=== PATIENT | female | born 1995 | race Caucasian/White ===

== ENCOUNTER 2018-03-03 18:20 | Emergency (ER) | payer OTHER ==
--- NOTE | 2018-03-03 20:03 | ER Document Report ---
HPI - HPI Pain Level: 4 Notes: Patient is a 22-year-old female who presents with chief complaint of left breast pain that started yesterday. Patient denies any fever but reports mild chills yesterday. Patient states that she believes she has either a clogged milk duct or mastitis. Patient is currently breast-feeding her 1-year-old . Past Medical History - General Information source: Patient - Social History Smoking Status: Never Smoker Chew tobacco use (# tins/day): No Frequency of alcohol use: Rare Drug Abuse: None Family History: Reviewed & Not Pertinent Patient has suicidal ideation: No Patient has homicidal ideation: No - Medical History Medical History: Negative Renal/ Medical History: Denies: Hx Peritoneal Dialysis Surgical Hx: Negative - Immunizations Immunizations up to date: Yes Vertical Provider Document - CONSTITUTIONAL Notes: PHYSICAL EXAMINATION: GENERAL: Well-appearing, well-nourished and in no acute distress. HEAD: Atraumatic, normocephalic. EYES: Pupils equal round extraocular movements intact, conjunctiva are normal. ENT: Nares patent NECK: Normal range of motion LUNGS: No respiratory distress Musculoskeletal: Normal range of motion NEUROLOGICAL: Normal speech, normal gait. PSYCH: Normal mood, normal affect. SKIN: Warm, Dry. Erythema noted to left breast at approximately 9:00 position. There is an area of induration with no fluctuance. - INFECTION CONTROL TRAVEL OUTSIDE OF THE [place] IN LAST 30 DAYS: No Course - Re-evaluation Re-evalutation: 03/03/18 20:07 Examination is consistent with mastitis. Patient will be placed on Augmentin and instructed on supportive care including warm compresses and ibuprofen. Patient encouraged to continue breast-feeding. Patient will have close follow- up with her primary care provider. Patient agrees with plan of care. - Vital Signs Vital signs: Temp Pulse Resp BP Pulse Ox 98.3 F 96 16 115/67 99 03/03/18 18:38 03/03/18 18:38 03/03/18 18:38 03/03/18 18:38 03/03/18 18:38 Discharge - Discharge Clinical Impression: Mastitis Condition: Stable Disposition: HOME, SELF-CARE Additional Instructions: Mastitis (Breast Infection) You have an infection in your breast, called mastitis. This is due to bacteria invading the breast through the milk ducts. Mastitis can be serious, and must be treated carefully. Antibiotics are required. Usually, warm packs are recommended. Some improvement should be evident within 24 to 36 hours. If you're breast-feeding, you should continue to nurse the baby. The baby won't be harmed by the milk from the infected breast. If you stop nursing, the breast must be pumped. If milk builds up in the breast, the infection can dramatically worsen! Follow-up care is important to check for abscess (boil) formation or resistant infection. If you develop fever, chills, or if the area of infection is becoming rapidly more swollen or painful, call the doctor at once. As we discussed, please take the antibiotics as prescribed. Please call your primary care provider at the [facility] on Monday morning to schedule an appointment for later this week. I would like to have them reevaluate you to ensure that this infection is clearing up. Continue to breast -feed as per usual. Apply warm compresses. Take Motrin 600 mg every 6 hours as needed for pain or inflammation. Prescriptions: Amox Tr/Potassium Clavulanate [Augmentin 875-125 mg Tablet] 1 tab PO BID #20 tablet
[2018-03-03] MEDS ORDERED: AMOXICILLIN TR/POT CLAVULANATE 500-125 MG TAB PO ONE (20:04)
[2018-03-03] MEDS ORDERED: AMOXICILLIN TRIHYDRATE 500 MG CAPSULE PO ONE (20:04)
[2018-03-03 20:13] VITALS: BP 118/72
== END 2018-03-03 20:14 | disposition home or self-care (01) ==
LOC: ER 18:20
DX: N61.0 Mastitis without abscess (principal); N64.4 Mastodynia
CPT/HCPCS: 99283

== ENCOUNTER 2019-02-13 18:44 | Emergency (ER) | payer OTHER ==
[2019-02-13 21:07] LABS: ABSOLUTE LYMPHOCYTES (AUTO) 1.4 10^3/uL (0.5-4.7); ABSOLUTE MONOCYTES (AUTO) 0.8 10^3/uL (0.1-1.4); ABSOLUTE NEUT (AUTO) 8.9 10^3/uL (1.7-8.2); BASOPHILS % (AUTO) 0.3 % (0-2); EOSINOPHILS % (AUTO) 0.1 % (0-6); HEMATOCRIT 36.9 % (36.0-47.0); LYMPHOCYTES % (AUTO) 12.7 % (13-45); MEAN CORPUSCULAR HEMOGLOBIN 31.2 pg (27.0-33.4); MEAN CORPUSCULAR HGB CONC 35.1 g/dL (32.0-36.0); MEAN CORPUSCULAR VOLUME 89 fl (80-97); MONOCYTES % (AUTO) 6.8 % (3-13); PLATELET COUNT 331 10^3/uL (150-450); RED BLOOD COUNT 4.15 10^6/uL (3.72-5.28); RED CELL DISTRIBUTION WIDTH 12.3 % (11.5-14.0); SEGMENTED NEUTROPHILS % (AUTO) 80.1 % (42-78); TOTAL CELLS COUNTED % (AUTO) 100 %; WHITE BLOOD COUNT 11.1 10^3/uL (4.0-10.5)
[2019-02-13 21:16] LABS: APPEARANCE,URINE SLIGHTLY-CLOUDY; BILIRUBIN,URINE SMALL (NEGATIVE); COLOR,URINE AMBER; GLUCOSE, URINE NEGATIVE (NEGATIVE); KETONES,URINE 80 mg/dL (NEGATIVE); LEUKOCYTE ESTERASE,URINE NEGATIVE (NEGATIVE); NITRITE,URINE NEGATIVE (NEGATIVE); PROTEIN,URINE 30 mg/dL (NEGATIVE); URINE SPECIFIC GRAVITY 1.025
[2019-02-13 21:22] LABS: ALBUMIN 4.3 g/dL (3.5-5.0); ALKALINE PHOSPHATASE 77 U/L (38-126); ANION GAP 13 (5-19); ASPARTATE AMINO TRANSFERASE 16 U/L (14-36); BILIRUBIN,DIRECT 0.2 mg/dL (0.0-0.4); BLOOD UREA NITROGEN 8 mg/dL (7-20); CALCIUM 9.4 mg/dL (8.4-10.2); CARBON DIOXIDE 24 mmol/L (22-30); CHLORIDE 102 mmol/L (98-107); GLUCOSE 87 mg/dL (75-110); POTASSIUM 3.8 mmol/L (3.6-5.0); TOTAL PROTEIN 7.5 g/dL (6.3-8.2)
[2019-02-13] MEDS ORDERED: RINGERS SOLUTION,LACTATED 1,000 ML IV ONE (21:32)
--- NOTE | 2019-02-13 21:33 | ER Document Report ---
ED General - General Chief Complaint: Abdominal Pain Stated Complaint: ABDOMINAL PAIN Time Seen by Provider: 02/13/19 21:20 TRAVEL OUTSIDE OF THE [place] IN LAST 30 DAYS: No - HPI Notes: Patient presents with 2 weeks of lower abdominal pain. She states she been having vaginal bleeding for over a week but it stopped last Monday. She states she has intermittent chills and feeling hot. No concern for vaginal discharge or infection. She does have a Mirena and states that it was verified to be in [place] No medical problems is not taking medications on a daily basis - Related Data Allergies/Adverse Reactions: yonas Allergy (Verified 02/13/19 18:48) Past Medical History - Social History Smoking Status: Never Smoker Frequency of alcohol use: Rare Drug Abuse: None Family History: Reviewed & Not Pertinent Patient has suicidal ideation: No Patient has homicidal ideation: No Renal/ Medical History: Denies: Hx Peritoneal Dialysis Psychiatric Medical History: Reports: Hx Attention Deficit Hyperactivity Disorder Past Surgical History: Reports: Hx Gynecologic Surgery - d/c - Immunizations Immunizations up to date: Yes Physical Exam - Vital signs Vitals: Temp Pulse Resp BP Pulse Ox 98.9 F 112 H 16 124/74 96 02/13/19 19:02 02/13/19 19:02 02/13/19 19:02 02/13/19 19:02 02/13/19 19:02 - General General appearance: Appears well, Alert - HEENT Head: Normocephalic, Atraumatic Eyes: Normal Conjunctiva: Normal - Respiratory Respiratory status: No respiratory distress Chest status: Nontender Breath sounds: Normal - Cardiovascular Rhythm: Regular Heart sounds: Normal auscultation Murmur: No - Abdominal Inspection: Normal Distension: No distension Bowel sounds: Normal Tenderness: Other - Tenderness palpation of lower abdominal quadrants both left and right and mid - Back Back: Normal, Nontender - Extremities General upper extremity: Normal inspection, Normal ROM General lower extremity: Normal inspection, Normal ROM - Neurological Neuro grossly intact: Yes Cognition: Normal Orientation: AAOx4 Course - Re-evaluation Re-evalutation: 02/13/19 23:14 Within normal limits are nonsignificant with no concerning findings on CT abdomen pelvis. Will provide patient anti-inflammatories as well as antispasmodics and she is to seek medical reevaluation next 3 to 5 days if symptoms are not improving. - Vital Signs Vital signs: Temp Pulse Resp BP Pulse Ox 98.9 F 112 H 16 124/74 96 02/13/19 19:02 02/13/19 19:02 02/13/19 19:02 02/13/19 19:02 02/13/19 19:02 - Laboratory Result Diagrams: 02/13/19 20:45 02/13/19 20:45 Laboratory results interpreted by me: 02/13/19 02/13/19 20:45 20:45 WBC 11.1 H Lymph % (Auto) 12.7 L Absolute Neuts (auto) 8.9 H Seg Neutrophils % 80.1 H Urine Protein 30 H Urine Ketones 80 H Urine Blood SMALL H Urine Bilirubin SMALL H Urine Urobilinogen 4.0 H Discharge - Discharge Clinical Impression: Abdominal cramping Condition: Good Disposition: HOME, SELF-CARE Instructions: Abdominal Pain ([facility]) Prescriptions: Baclofen [Baclofen 20 Mg Tablet] 20 mg PO TID #20 tablet Naproxen 500 mg PO BID #20 tablet
--- NOTE | 2019-02-13 22:51 | RADIOLOGY REPORT (SQ) ---
EXAM DESCRIPTION: CT ABDOMEN PELVIS WITH IV CONTRAST COMPLETED DATE/TME: 02/13/2019 21:32 CLINICAL HISTORY: 23 years, Female, diffuse lower abd pain This exam was performed according to our departmental dose-optimization program which includes automated exposure control, adjustment of the mA and/or kVp according to patient size and/or use of iterative reconstruction technique where applicable. FINDINGS: Visualized lung bases are within normal limits. Liver, spleen, pancreas, gallbladder, adrenal glands and kidneys are within normal limits. No hydronephrosis or biliary dilatation. No dilated loops of bowel to suggest obstruction. The appendix is normal. No free fluid or free air. Bladder is unremarkable. Gynecologic organs demonstrate IUD. No abdominal or pelvic lymphadenopathy. Abdominal aorta is within normal limits. IMPRESSION: No acute disease. No evidence for acute appendicitis.
[2019-02-13 23:49] VITALS: BP 118/71
== END 2019-02-13 23:53 | disposition home or self-care (01) ==
LOC: ER 18:44
DX: R10.30 Lower abdominal pain, unspecified (principal)
CPT/HCPCS: 99284; 96360; 96361; 36415; 85025; 81025; 80053; 81001; 74177; J7120